=== PATIENT | female | born 1960 | race Caucasian/White ===

== ENCOUNTER → 2018-08-14 | Outpatient (CLI) | payer BC ==
--- NOTE | 2018-08-14 12:32 | KCIC ---
Bilateral digital screening mammograms: Reason for examination: Routine screening. Comparison is made to previous studies dated 07/07/2016, 03/15/2012 and 11/03/2010. Interpretation was made with the benefit of CAD. The skin and nipples show no abnormalities. No abnormal axillary lymph nodes are seen. The breast parenchyma shows scattered fibroglandular density. (Breast density: Category B.) There are no dominant masses, suspicious calcifications or architectural distortions. Impression: No evidence of malignancy. Recommend routine screening. BI-RADS Category 1: Negative. "Our facility is accredited by the [employer] Mammography Program." This patient's information has been entered into a reminder system for the patient to be notified with the results of her examination and a target date for the next mammogram. Electronically signed by: Yari Alex MD (08/14/2018 12:27 PM) [id number]
--- NOTE | 2018-08-14 13:42 | KCIC ---
Carotid Doppler ultrasound INDICATION: Right carotid bruit. Right face and mouth tingling for 15 years.. COMPARISON: None are available TECHNIQUE: Color, grayscale and doppler ultrasound images obtained of the carotid system bilaterally. Percent stenosis is estimated using criteria that correlates with NASCET methodology. FINDINGS: Peak systolic velocities are as follows in cm/s: Right Carotid System: CCA PSV: 75 ICA PSV: 67 ICA EDV: 24 ECA PSV: 59 ICA/CCA Ratio 0.89 Right vertebral artery is patent with normal direction of flow. Minimal plaque identified at the carotid bulb and proximal right ICA. Left Carotid System: CCA PSV: 86 ICA PSV: 83 ICA EDV: 34 ECA PSV: 66 ICA/CCA Ratio 0.97 Left vertebral artery is patent with normal direction of flow. No high-grade luminal narrowing or occlusion is identified on grayscale or color images. IMPRESSION: No evidence of hemodynamically significant stenosis. Electronically signed by: Faustino Mtz MD (08/14/2018 1:38 PM) [id number]
== END | disposition home or self-care (01) ==
LOC: KCIC MAMMO 09:38
PROVIDERS: ATTEND Family Medicine
DX: Z12.31 Encounter for screening mammogram for malignant neoplasm of breast (principal); I65.21 Occlusion and stenosis of right carotid artery
CPT/HCPCS: 77067; 93880